=== PATIENT | male | born 1985 | race Caucasian/White ===

== ENCOUNTER 2022-07-10 13:34 | Outpatient (CLI) | payer OTHER ==
[~2022-07-10 13:34] MED LIST: CLIN-26 PO; NO HOME MEDS
== END 2022-07-10 23:59 | disposition home or self-care (01) ==
LOC: RAD 13:34
PROVIDERS: ATTEND Orthopaedic Surgery
DX: S43.431A Superior glenoid labrum lesion of right shoulder, initial encounter (principal); M25.711 Osteophyte, right shoulder; X58.XXXA Exposure to other specified factors, initial encounter; Y93.89 Activity, other specified; Y92.89 Other specified places as the place of occurrence of the external cause; Y99.8 Other external cause status
CPT/HCPCS: 73221